=== PATIENT | female | born 1960 | race Caucasian/White ===

== ENCOUNTER 2023-01-01 23:45 | Inpatient (IN) | payer MEDICARE, OTHER ==
[~2023-01-01] VITALS: Ht 160 cm; Wt 73.0 kg
[2023-01-02] MEDS ORDERED: HYDROCODONE/APAP 5-325MG TABLET PO ONE (02:45)
[2023-01-02] MEDS ORDERED: MULT-416 PO (02:48)
[2023-01-02] MEDS ORDERED: AMLO10TA59 PO (02:48)
[2023-01-02] MEDS ORDERED: MELA5TAB PO (02:48)
[2023-01-02] MEDS ORDERED: ARIP30TA3 PO (02:48)
[2023-01-02] MEDS ORDERED: ESCI20TA44 PO (02:48)
[2023-01-02] MEDS ORDERED: LAMO100T2 PO (02:48)
[2023-01-02] MEDS ORDERED: DIVA500T4 PO (02:48)
[2023-01-02] MEDS ORDERED: ERGO400C PO (02:48)
[2023-01-02] MEDS ORDERED: DOCU250C14 PO (02:48)
[2023-01-02] MEDS ORDERED: IPRA3AMP22 IH (02:48)
[2023-01-02] MEDS ORDERED: LORA2DIS5 IM (02:48)
[2023-01-02] MEDS ORDERED: MIRT-121 PO (02:48)
[2023-01-02] MEDS ORDERED: ASCO-375 PO (02:48)
[2023-01-02] MEDS ORDERED: PANT40TA2 PO (02:48)
[2023-01-02] MEDS ORDERED: ATOR20TA PO (02:48)
[2023-01-02 03:06] LABS: HEMATOCRIT 36.7 % (31.2-41.9); MEAN CORPUSCULAR HEMOGLOBIN 30.3 uug (24.7-32.8); MEAN CORPUSCULAR VOLUME 89.6 fL (75.5-95.3); PLATELET COUNT (AUTO) 170 K/uL (179-408)
[2023-01-02 03:12] LABS: CREATININE 1.5 mg/dL (0.6-1.3); POTASSIUM 3.2 mmol/L (3.5-5.1)
--- NOTE | 2023-01-02 03:31 | NUR ---
Patient has been admitted by Rita Gibson NP and Dr Villatoro
[2023-01-02] MEDS ORDERED: HYDROCODONE/APAP 5-325MG TABLET ONE (04:16)
[2023-01-02] MEDS ORDERED: POTASSIUM BICARBONATE/CIT AC 25 MEQ TABLET.EFF PO ONE (04:30)
--- NOTE | 2023-01-02 05:01 | NUR ---
Patient will be admitted to MHU bed 140-A
[2023-01-02] MEDS ORDERED: POTASSIUM BICARBONATE/CIT AC 25 MEQ TABLET.EFF ONE (05:21)
--- NOTE | 2023-01-02 05:33 | NUR ---
Called Yahaira Smith to notify of patients admission to MHU. Unable to reach her, left a voicemail.
--- NOTE | 2023-01-02 06:00 | NUR ---
Report given to Julieta COULTER at [facility]
--- NOTE | 2023-01-02 06:33 | NUR ---
Patient taken to MHU via wheelchair with personal belongings. Patient in stable condition, no signs of distress. May RN aware of patients arrival.
[2023-01-02] MEDS ORDERED: BLOOD SUGAR DIAGNOSTIC 1 EACH STRIP VI ONE (06:45)
[2023-01-02] MEDS ORDERED: MAGNESIUM HYDROXIDE 30 ML LIQUID UDC PO PRN (06:45)
[2023-01-02] MEDS ORDERED: LORAZEPAM 0.5 MG TABLET PO PRN (06:45)
[2023-01-02] MEDS ORDERED: MAG HYDROX/AL HYDROX/SIMETH 30 ML LIQUID UDC PO PRN (06:45)
[2023-01-02 06:58] VITALS: BP 161/92
--- NOTE | 2023-01-02 07:19 | NUR ---
GPS ADMISSION NOTES: Admitted a 62 Y/0 female from [facility], she was BIB ER nurse to the unit via wheelchair. Patient is on 515o hold d/t DTS and GD, she is breaking the window at her facility, non-compliant with medications and not following directions. Upon face to face evaluation, she is A&0X2, she is ambulatory and hyperverbal. Her thought are disorganized, also having suspicious statements about the vaccines. Advisement are given and patients right were given to patient.
[2023-01-02 07:30] VITALS: BP 130/59
--- NOTE | 2023-01-02 09:22 | NUR ---
PALOMO Conservator Contact: PALOMO spoke with pt's conservator, Yahaira ([phone]) who stated she renewed the conservator paperwork o December 30 and it was approved by the county judge. [facility] ([phone]). Yahaira stated we cannot obtain the paperwork for another week until the Right Of Way Manager signs it and sends it. Psychiatrist, Dr. Villatoro is aware.
[2023-01-02] MEDS: MULTIVIT, IRON, MIN NO. 8, FA TABLET PO SCH (09:48)
[2023-01-02] MEDS: ASCORBIC ACID 500 MG TABLET PO SCH (09:48)
[2023-01-02] MEDS: DOCUSATE SODIUM 250 MG CAPSULE PO SCH (09:49)
[2023-01-02] MEDS: CHOLECALCIFEROL 1,000 UNIT TABLET PO SCH (09:49)
[2023-01-02] MEDS: AMLODIPINE 10 MG TABLET PO SCH (09:50)
[2023-01-02] MEDS: PANTOPRAZOLE SODIUM 40 MG TABLET.DR PO SCH (09:53)
[2023-01-02] MEDS: POTASSIUM CHLORIDE 20 MEQ TAB.PRT.SR PO ONE ×2 (12:00→13:59)
--- NOTE | 2023-01-02 12:24 | NUR ---
PALOMO Initial Discharge Note: Pt currently resides at [facility] located at [address] [place] [address]. PALOMO will contact pt's conservator, Yahaira ([phone]) to discuss pt's discharge plan. It is unclear at this time what type of conservatorship the pt has. PALOMO will contact the admissions team at [facility] to dicuss if pt is accepted to return to their facility upon discharge. PALOMO will continue to work with pt, conservator and MD to ensure a safe and proper discharge.
--- NOTE | 2023-01-02 14:14 | NUR ---
Patient refused POTASSIUM CHLORIDE 20 MEQ TAB. PRT .SR. Pt chew pill and stated "this does not taste like potassium, I do not want it".Patient spit out the pill.
[2023-01-02] MEDS ORDERED: BENZTROPINE MESYLATE 0.5 MG TABLET PO SCH (14:30)
[2023-01-02] MEDS: risperiDONE 1 MG TABLET PO SCH ×3 (15:00→20:00)
[2023-01-02] MEDS: DIVALPROEX 250 MG TABLET.DR PO SCH ×3 (15:00→20:00)
--- NOTE | 2023-01-02 15:25 | NUR ---
Received pt in hallway demanding to see the Dr. Pt is ambulatory A/O X 3.Pt has unkept appearance. Pt refuses nursing care and refuses ADL's. Pt is not med compliant.Pt demands medications and when offer refuses to taker them. Pt is intrusive, hyperverbal, accusatory Pt stated "why are you talking about me" "what did you called me?".Pt goes into other patients rooms.Pt is delusional, grandiose, pt stated "I am better than a nurse because of Estiven Broderick.Pt stated "this is a taoist not a hospital. Patient keeps trying to elope. Pt has generalized rash , Phlebotomist Associate was informed ad prescribed PERMETHRIN CREAM 5% W/W and pt refuse. Pt refused refuse to let nurse take picture of the rash. Continue to monitor for safety, continue with treatment plan
[2023-01-02 16:00] VITALS: BP 154/94
[2023-01-02] MEDS ORDERED: PERMETHRIN 5% CREAM 60 GM TUBE TP ONE (16:30)
[2023-01-02] MEDS ORDERED: OLANZAPINE 10 MG VIAL IM STA (19:28)
[2023-01-02] MEDS: LORAZEPAM 1 MG TABLET PO PRN (20:00)
[2023-01-02] MEDS: ATORVASTATIN 20 MG TABLET PO SCH (20:12)
[2023-01-02] MEDS: MELATONIN 3 MG TABLET PO SCH (20:12)
[2023-01-02] MEDS ORDERED: LORAZEPAM 2 MG/1 ML VIAL IM STA (21:21)
[2023-01-02] MEDS ORDERED: diphenhydrAMINE 50 MG/1 ML VIAL IM STA (21:21)
--- NOTE | 2023-01-02 22:57 | NUR ---
Received patient at start of the shift, in nursing area, tearing papers off the marsh. Hallucinating, delusional, load and not responding to any redirection. Multiple attempts to calm the patient and encourage compliance failed. The patient continuously tried to fight with staff and peers. No regard for safety of anyone. She refused to take any medications and refused V.S. Dr. Villatoro was notified and order was received for IM injection Zyprexa. Security was present, and injection was given. The patient tolerated the shot well. Unfortunately, the medication was not effective, and the patients behavior continued. At one point, the patient agreed to take medications by mouth. When this tag writer gave them to her, She spit the pill and the water out on the floor. Many tries to calm patient down were unsuccessful. A hour after the first injection, a second injection was ordered. Again, the patient tolerated it well. Directly afterwards, this patient was at the door of the unit trying to go AWOL. Ongoing safety stratiges in place. Eventually, the patient agreed to sit in a chair, near the nurses station for close observation. VS were monitored and stable. The patient ate and drank but still acting out to some degree. Continuous monitoring of this patients labile behavior since start of the shift. At this time, the patient is calming down and might be willing to get some rest. Close observation ongoing.
[2023-01-02] MEDS: TEMAZEPAM 7.5 MG CAPSULE PO PRN (23:04)
[2023-01-03] MEDS: PANTOPRAZOLE SODIUM 40 MG TABLET.DR PO SCH (06:32)
[2023-01-03 07:30] VITALS: BP 122/68
[2023-01-03] MEDS: AMLODIPINE 10 MG TABLET PO SCH (08:31)
[2023-01-03] MEDS: CHOLECALCIFEROL 1,000 UNIT TABLET PO SCH (08:31)
[2023-01-03] MEDS: DOCUSATE SODIUM 250 MG CAPSULE PO SCH (08:31)
[2023-01-03] MEDS: DIVALPROEX 250 MG TABLET.DR PO SCH ×3 (08:31→17:00)
[2023-01-03] MEDS: MULTIVIT, IRON, MIN NO. 8, FA TABLET PO SCH (08:31)
[2023-01-03] MEDS: HYDROCORTISONE 1% OINT 28.35 GM TUBE TOP SCH ×2 (08:32→17:00)
[2023-01-03] MEDS: risperiDONE 1 MG TABLET PO SCH ×3 (08:32→17:00)
[2023-01-03] MEDS: ASCORBIC ACID 500 MG TABLET PO SCH (08:32)
--- NOTE | 2023-01-03 09:02 | NUR ---
PALOMO Conservator Contact: PALOMO contacted pt's conservator, Yahaira ([phone]) and left a voicemail to discuss pt's conservator paperwork. Per Seamer Panty Hose, Dr. Marinelli and Director of Behavioral Health, Dr. Christina Perez, Yahaira is required to provide a letter stating that she will provide conservatorship paperwork in a week when the Pin Or Clip Fastener provides it.
--- NOTE | 2023-01-03 09:12 | NUR ---
PALOMO Conservator Contact: PALOMO contacted pt's conservator, Yahaira ([phone]) and left a voicemail for a call back regarding conservatorship paperwork.
--- NOTE | 2023-01-03 10:36 | NUR ---
Firearms Report: Flat Breakdown Processor completed and submitted a [employer] firearms report for 5150 grave disability certifications. A copy of report has been placed in patient chart.
[2023-01-03 11:53] LABS: MEAN CORPUSCULAR HEMOGLOBIN 29.9 uug (24.7-32.8); MEAN CORPUSCULAR VOLUME 89.9 fL (75.5-95.3); PLATELET COUNT (AUTO) 179 K/uL (179-408)
[2023-01-03 12:14] LABS: BILIRUBIN,TOTAL 0.6 mg/dL (0.2-1.0); CREATININE 1.4 mg/dL (0.6-1.3); MAGNESIUM 2.3 mg/dL (1.8-2.4); PHOSPHOROUS 3.7 mg/dL (2.5-4.9); POTASSIUM 4.2 mmol/L (3.5-5.1); TOTAL PROTEIN, SERUM 7.4 g/dL (6.4-8.2)
--- NOTE | 2023-01-03 12:33 | NUR ---
Clinical SW Note: SW contacted [facility] [phone] and spoke with the desk office of the day, Lowell regarding pt's conservatorship paperwork. Lowell stated pt's new conservatorship paperwork is effective until November 06, 2023. . Lowell stated the hospital can only obtain the paperwork from the conservator, Yahaira ([phone]) who stated to this SW that she will have the papers within a week. SW informed pt's psychiatrist, Dr. Marinelli and Director of behavioral health, Dr. Perez.
[2023-01-03] MEDS ORDERED: OLANZAPINE 10 MG VIAL IM ONE (14:15)
[2023-01-03] MEDS ORDERED: LORAZEPAM 2 MG/1 ML VIAL IM ONE (14:15)
--- NOTE | 2023-01-03 14:16 | NUR ---
Clinical SW Note: SW contacted [facility] [phone] and was not able to get connected or leave a voicemail.
--- NOTE | 2023-01-03 14:45 | NUR ---
Patient became disoriented, delusional, incoherent, agitated, aggressive, hyperverbal, threatening physical harm to others and environment. Psychiatrist was called and prescribed Zyprexa 10 mg IM, and Ativan 1 mg IM. Security was called and 4 staff were necessary to administer medication, but no force needed. Reassurance given. Fall and safety precautions implemented.
--- NOTE | 2023-01-03 15:54 | NUR ---
Patient is hyperverbal, manic, agitated, restless, incoherent, verbally abusive, accusatory, uncooperative with nursing care, and refusing medications. Patient defecated in her hand, squeezed between her fingers, and try to give to staff stating "I need a poop test, tell the doctor" Patient is A/O X 2 to person, place. Requires minimal assistance with ADL, ambulates independently, continent. Reality orientation provided. Fall and safety precautions implemented.
[2023-01-03 16:00] VITALS: BP 130/74
[2023-01-03 20:08] VITALS: BP 108/57
[2023-01-03] MEDS: ATORVASTATIN 20 MG TABLET PO SCH (20:41)
[2023-01-03] MEDS: MELATONIN 3 MG TABLET PO SCH (20:42)
[2023-01-03] MEDS: TEMAZEPAM 7.5 MG CAPSULE PO PRN (22:24)
[2023-01-04] MEDS: LORAZEPAM 1 MG TABLET PO PRN (01:41)
--- NOTE | 2023-01-04 04:47 | NUR ---
GPS NOTES: Patient is manic, hyperverbal and very needy. She is is attention seeker, intrusive and labile. She needs constant re-direction, she is argumentative when being educated on the unit rules. She is disruptive in the unit, potential for violence d/t to her delusions. Her thought process is disorganized, she is paranoid and accusatory of staff. She is non-compliant with her routine medications. Temazepam given as per her request. Semi-effective, patient only slept 1.30H during shift.All needs are attended to. Safety precautions implemented at all times.
[2023-01-04] MEDS: PANTOPRAZOLE SODIUM 40 MG TABLET.DR PO SCH (06:12)
[2023-01-04 07:56] VITALS: BP 140/100
[2023-01-04] MEDS: DOCUSATE SODIUM 250 MG CAPSULE PO SCH (08:22)
[2023-01-04] MEDS: AMLODIPINE 10 MG TABLET PO SCH (08:22)
[2023-01-04] MEDS: DIVALPROEX 250 MG TABLET.DR PO SCH ×3 (08:22→17:23)
[2023-01-04] MEDS: risperiDONE 1 MG TABLET PO SCH ×3 (08:23→17:22)
[2023-01-04] MEDS: MULTIVIT, IRON, MIN NO. 8, FA TABLET PO SCH (08:23)
[2023-01-04] MEDS: CHOLECALCIFEROL 1,000 UNIT TABLET PO SCH (08:23)
[2023-01-04] MEDS: HYDROCORTISONE 1% OINT 28.35 GM TUBE TOP SCH ×2 (08:23→17:23)
[2023-01-04] MEDS: ASCORBIC ACID 500 MG TABLET PO SCH (08:24)
--- NOTE | 2023-01-04 14:32 | NUR ---
PT NOTED COMING TO THE NURSES STATION AN EXORBITANT AMOUNT OF TIMES, MAKING VARYING ARBITRARY REQUESTS AND NEEDS. PT IS EXCESSIVELY NEEDY AND INTRUSIVE, REQUIRES FREQUENT AND EXCESSIVE REDIRECTION. REMAINS MANIC, ATTENTION SEEKING, ARGUMENTATIVE, LABILE, DEMANDING, AND QUITE MANIPULATIVE. CONTINUE TO PROVIDE LIMIT SETTING AND ENCOURAGE COMPLIANCE WITH UNIT RULES AND WITH STAFF AND UNIT BOUNDARIES.
[2023-01-04 16:19] VITALS: BP 152/84
[2023-01-04 20:00] VITALS: BP 112/84
[2023-01-04] MEDS: ATORVASTATIN 20 MG TABLET PO SCH (20:38)
[2023-01-04] MEDS: MELATONIN 3 MG TABLET PO SCH (20:38)
[2023-01-05] MEDS: LORAZEPAM 1 MG TABLET PO PRN ×4 (01:20→20:24)
[2023-01-05] MEDS: PANTOPRAZOLE SODIUM 40 MG TABLET.DR PO SCH (06:08)
--- NOTE | 2023-01-05 06:32 | NUR ---
GPS NOTES: No noted behavioral improvement noted, continues to have yelling episodes, verbally abusive and no regard for peoples feelings. Ambien given. Effective. All safety strategies in placed. Addendum: 01/05/23 at 0639 by PEDRO LYNNE RN CHARTED TO WRONG PATIENT
--- NOTE | 2023-01-05 06:40 | NUR ---
GPS NOTES: She remains intrusive, very needy and demanding. Manipulating staff and making requests every 15 minutes, tends to be hostile when setting limits implemented. She is grandiose stating she is "special", needs presenting reality. Patient has no concept of boundaries, she is manic, pacing around the unit, often in the nursing station demanding for attention by making alot of requests. She is med compliant. Slept 4.15H. Safety strategies in placed. Frequent monitoring for any behavioral escalation.
[2023-01-05 08:13] VITALS: BP 120/82
[2023-01-05] MEDS: risperiDONE 1 MG TABLET PO SCH ×3 (08:31→16:46)
[2023-01-05] MEDS: CHOLECALCIFEROL 1,000 UNIT TABLET PO SCH (08:31)
[2023-01-05] MEDS: AMLODIPINE 10 MG TABLET PO SCH (08:31)
[2023-01-05] MEDS: MULTIVIT, IRON, MIN NO. 8, FA TABLET PO SCH (08:31)
[2023-01-05] MEDS: DIVALPROEX 250 MG TABLET.DR PO SCH ×3 (08:32→16:46)
[2023-01-05] MEDS: HYDROCORTISONE 1% OINT 28.35 GM TUBE TOP SCH ×2 (08:32→16:47)
[2023-01-05] MEDS: ASCORBIC ACID 500 MG TABLET PO SCH (08:32)
[2023-01-05] MEDS: DOCUSATE SODIUM 250 MG CAPSULE PO SCH (08:32)
[2023-01-05 16:10] VITALS: BP 139/74
--- NOTE | 2023-01-05 18:03 | NUR ---
Received Patient is hyperverbal, manic, agitated, restless, incoherent, uncooperative with nursing care. constantly coming to nurse station asking for help very needy.augmentative when medication given. Patient is A/O X 2 to person, place. Requires minimal assistance with ADL, ambulates independently, continent. Reality orientation provided. Fall and safety precautions implemented.
[2023-01-05 20:06] VITALS: BP 121/55
[2023-01-05] MEDS: ATORVASTATIN 20 MG TABLET PO SCH ×2 (20:19→20:25)
[2023-01-05] MEDS: ACETAMINOPHEN 325 MG TABLET PO PRN ×2 (20:20→20:24)
[2023-01-05] MEDS: MELATONIN 3 MG TABLET PO SCH ×2 (20:20→20:25)
--- NOTE | 2023-01-06 00:17 | NUR ---
~~~ NEEDY and ATTENTION SEEKING ~~~
[2023-01-06] MEDS: PANTOPRAZOLE SODIUM 40 MG TABLET.DR PO SCH (06:20)
[2023-01-06 07:50] VITALS: BP 166/76
[2023-01-06] MEDS: LORAZEPAM 1 MG TABLET PO PRN ×2 (08:39→20:08)
[2023-01-06] MEDS: MULTIVIT, IRON, MIN NO. 8, FA TABLET PO SCH (08:39)
[2023-01-06] MEDS: DOCUSATE SODIUM 250 MG CAPSULE PO SCH (08:39)
[2023-01-06] MEDS: CHOLECALCIFEROL 1,000 UNIT TABLET PO SCH (08:40)
[2023-01-06] MEDS: DIVALPROEX 250 MG TABLET.DR PO SCH ×3 (08:40→16:46)
[2023-01-06] MEDS: risperiDONE 1 MG TABLET PO SCH ×3 (08:40→16:46)
[2023-01-06] MEDS: AMLODIPINE 10 MG TABLET PO SCH (08:40)
[2023-01-06] MEDS: ASCORBIC ACID 500 MG TABLET PO SCH (08:41)
[2023-01-06] MEDS: HYDROCORTISONE 1% OINT 28.35 GM TUBE TOP SCH ×2 (08:42→16:47)
[2023-01-06 09:06] LABS: A/G RATIO 1.2 (0.7-1.7); ALBUMIN 3.7 g/dL (2.9-4.4); ALPHA-1-GLOBULIN 0.3 g/dL (0.0-0.4); ALPHA-2-GLOBULIN 0.7 g/dL (0.4-1.0); BETA GLOBULIN 1.2 g/dL (0.7-1.3); GLOBULIN, TOTAL 3.2 g/dL (2.2-3.9); M-SPIKE Not Observed g/dL (Not Observed)
--- NOTE | 2023-01-06 09:27 | NUR ---
PALOMO LPS Conservator Contact: PALOMO contacted pt's conservator, Yahaira ([phone]) and discussed pt's current status and discharge plan. PALOMO asked if Yahaira can send a letter stating that [facility] will receive her LPS paperwork within the week and that [facility] has the right to treat the pt. PALOMO provided work email as Cayetano stated she does not have a fax machine. Cayetano was agreeable and stated she will send it today. Pt's discharge plan remains the same to return to [facility] ([phone]) [id number] [place] [address] upon discharge.
--- NOTE | 2023-01-06 16:05 | NUR ---
Clinical SW Note: Pt continues with intrusive behavior. Pt requires constant redirection and appears forgetful. Pt remains accusatory and argumentative with staff.
[2023-01-06 16:38] VITALS: BP 127/75
[2023-01-06 19:51] VITALS: BP 121/85
[2023-01-06] MEDS: ACETAMINOPHEN 325 MG TABLET PO PRN (20:08)
[2023-01-06] MEDS: ATORVASTATIN 20 MG TABLET PO SCH (20:09)
[2023-01-06] MEDS: MELATONIN 3 MG TABLET PO SCH (20:09)
[2023-01-07] MEDS: TEMAZEPAM 7.5 MG CAPSULE PO PRN ×2 (00:35→22:06)
[2023-01-07] MEDS: PANTOPRAZOLE SODIUM 40 MG TABLET.DR PO SCH (06:22)
--- NOTE | 2023-01-07 08:00 | NUR ---
Pt received from outgoing nurse. PT AAOX3. Very anxious. Pt ambulate frequently ambulating hallways. No signs of shortness of breath noted. Pt denies any pain at this time. All meds given. Will continue to monitor
[2023-01-07 08:05] VITALS: BP 127/69
[2023-01-07] MEDS: AMLODIPINE 10 MG TABLET PO SCH (09:06)
[2023-01-07] MEDS: ASCORBIC ACID 500 MG TABLET PO SCH (09:06)
[2023-01-07] MEDS: DIVALPROEX 250 MG TABLET.DR PO SCH ×3 (09:06→17:00)
[2023-01-07] MEDS: DOCUSATE SODIUM 250 MG CAPSULE PO SCH (09:06)
[2023-01-07] MEDS: MULTIVIT, IRON, MIN NO. 8, FA TABLET PO SCH (09:06)
[2023-01-07] MEDS: risperiDONE 1 MG TABLET PO SCH ×2 (09:06→13:35)
[2023-01-07] MEDS: CHOLECALCIFEROL 1,000 UNIT TABLET PO SCH (09:06)
[2023-01-07] MEDS: HYDROCORTISONE 1% OINT 28.35 GM TUBE TOP SCH ×2 (09:13→17:06)
--- NOTE | 2023-01-07 13:45 | NUR ---
PALOMO LPS Conservator Contact: PALOMO contacted pt's conservator, Yahaira ([phone]) and discussed an update on the [facility] conservatorship paperwork or minute order. Yahaira said minute orders are not available via email and she is not able to drive to the court house to receive one. Yahaira stated she will send the paperwork once she receives it or drive to get the minute order if not received soon. PALOMO emphasized the importance of receiving the paperwork. PALOMO will continue to stay in contact.
[2023-01-07] MEDS: HYDROXYZINE PAMOATE 25 MG CAPSULE PO PRN ×2 (13:52→23:37)
[2023-01-07 16:08] VITALS: BP 111/87
--- NOTE | 2023-01-07 16:36 | NUR ---
14 day PC hearing done, held for [facility] Dis[facility].
[2023-01-07 19:58] VITALS: BP 137/75
[2023-01-07] MEDS: ATORVASTATIN 20 MG TABLET PO SCH (20:19)
[2023-01-07] MEDS: MELATONIN 3 MG TABLET PO SCH (20:19)
[2023-01-07] MEDS: risperiDONE 2 MG TABLET PO SCH (20:19)
[2023-01-07] MEDS: ACETAMINOPHEN 325 MG TABLET PO PRN (20:19)
[2023-01-07] MEDS: LORAZEPAM 1 MG TABLET PO PRN (20:19)
--- NOTE | 2023-01-08 03:41 | NUR ---
Not as INTRUSIVE as the last couple shifts, but still intrusive. Pt wanders the unit aimlessly, and makes unnecessary requests knowingly. Still attention seeking with poor judgement. Setting strict boundaries q shift is necessary. Re-education is ongoing. Contracted for safety.
[2023-01-08] MEDS: PANTOPRAZOLE SODIUM 40 MG TABLET.DR PO SCH (06:45)
[2023-01-08] MEDS: LORAZEPAM 1 MG TABLET PO PRN ×2 (06:45→21:34)
[2023-01-08 07:49] VITALS: BP 137/89
[2023-01-08] MEDS: DIVALPROEX 250 MG TABLET.DR PO SCH (08:27)
[2023-01-08] MEDS: risperiDONE 1 MG TABLET PO SCH ×2 (08:27→12:12)
[2023-01-08] MEDS: DOCUSATE SODIUM 250 MG CAPSULE PO SCH (08:27)
[2023-01-08] MEDS: CHOLECALCIFEROL 1,000 UNIT TABLET PO SCH (08:28)
[2023-01-08] MEDS: MULTIVIT, IRON, MIN NO. 8, FA TABLET PO SCH (08:28)
[2023-01-08] MEDS: ASCORBIC ACID 500 MG TABLET PO SCH (08:28)
[2023-01-08] MEDS: AMLODIPINE 10 MG TABLET PO SCH (08:28)
[2023-01-08] MEDS: HYDROCORTISONE 1% OINT 28.35 GM TUBE TOP SCH ×2 (08:30→16:50)
[2023-01-08] MEDS ORDERED: diphenhydrAMINE 25 MG/10 ML UDC NG SCH (09:45)
[2023-01-08] MEDS: diphenhydrAMINE 25 MG CAP PO SCH ×2 (10:02→16:49)
--- NOTE | 2023-01-08 10:38 | NUR ---
PALOMO [facility] Conservatorship Update: PALOMO contacted [facility] ([phone]) again and spoke with Theron in the court house. This PALOMO requested Theron for the minute order to be sent via email or fax to [facility] per Director of Behavioral Health, Dr. Perez. PALOMO stated [facility] must have the document on file during pt's admission on the unit. Theron stated they normally do not send these as it needs to come from the [facility] conservator. However, Theron stated he understands the urgency and faxed the minute order per request to this SW. PALOMO placed a copy of the minute order in the pt's chart. Theron informed this SW that the collarette separator has not yet signed the paperwork to be sent via mail to the conservator.
[2023-01-08 15:10] VITALS: BP 144/95
--- NOTE | 2023-01-08 16:04 | NUR ---
"Receive pt in hallway demanding to use the phone.|Pt is A/ O X 3 ,hyperverbal, intrusive, Manic. Pt comes to nursing station constantly asking for the phone, snacks, water and belongings. Pt is compliant with medications and Nursing care . Pt has poor impulse control Continue to monitor for safety, Continue with treatment plan."
[2023-01-08] MEDS: OXCARBAZEPINE 300 MG TABLET PO SCH (16:50)
[2023-01-08] MEDS: ATORVASTATIN 20 MG TABLET PO SCH (20:14)
[2023-01-08] MEDS: risperiDONE 2 MG TABLET PO SCH (20:14)
[2023-01-08] MEDS: MELATONIN 3 MG TABLET PO SCH (20:14)
[2023-01-08 20:50] VITALS: BP 123/83
--- NOTE | 2023-01-09 04:52 | NUR ---
GPS NOTES: Patient remains delusional, making statements that she is allergic to Risperdal and Ativan, as they make her shake and itchy. She is anxious and wandering around the unit. She remains needy. Med-compliant with this feature writer. Needs to set limits and boundaries. She is labile and manic. Sleeping on and off during shift. Sleep walking observed. Trying to open every exit door. Guided her safely back to room. All safety strategies left in placed.
[2023-01-09] MEDS: PANTOPRAZOLE SODIUM 40 MG TABLET.DR PO SCH (06:20)
[2023-01-09 07:30] VITALS: BP 111/77
[2023-01-09] MEDS: risperiDONE 1 MG TABLET PO SCH (08:00)
[2023-01-09] MEDS: diphenhydrAMINE 25 MG CAP PO SCH ×2 (08:04→17:21)
[2023-01-09] MEDS: DOCUSATE SODIUM 250 MG CAPSULE PO SCH (08:04)
[2023-01-09] MEDS: ASCORBIC ACID 500 MG TABLET PO SCH (08:05)
[2023-01-09] MEDS: OXCARBAZEPINE 300 MG TABLET PO SCH ×3 (08:05→17:21)
[2023-01-09] MEDS: CHOLECALCIFEROL 1,000 UNIT TABLET PO SCH (08:05)
[2023-01-09] MEDS: MULTIVIT, IRON, MIN NO. 8, FA TABLET PO SCH (08:07)
[2023-01-09] MEDS: HYDROCORTISONE 1% OINT 28.35 GM TUBE TOP SCH ×2 (08:08→17:21)
[2023-01-09] MEDS: AMLODIPINE 10 MG TABLET PO SCH (08:09)
--- NOTE | 2023-01-09 10:50 | NUR ---
PALOMO LPS Conservator Contact: PALOMO contacted pt's conservator, Yahaira ([phone]) and informed her that [facility] provided the minute order to [facility]. Cayetano is aware that we are now only waiting for the LPS paperwork when she receives them in the mail.
[2023-01-09] MEDS: ARIPIPRAZOLE 5 MG TABLET PO SCH (12:14)
--- NOTE | 2023-01-09 15:30 | NUR ---
Receive pt on hallway,restless, Hyperverbal,demanding ,snacks, to see her belongings that were left at her other facility where she came from. Pt is A/o X2 self care ambulatory.Pt is intrusive and keeps interrupting staff when they are talking to other patients or doctor. Pt is easily redirectable. Pt is Compliant with nursing and medications.Continue to monitor for safety, continue with treatment plan.
[2023-01-09 16:00] VITALS: BP 147/98
[2023-01-09 20:37] VITALS: BP 145/91
[2023-01-09] MEDS: ATORVASTATIN 20 MG TABLET PO SCH (20:56)
[2023-01-09] MEDS: MELATONIN 3 MG TABLET PO SCH (20:56)
[2023-01-09] MEDS ORDERED: ARIPIPRAZOLE 10 MG TABLET PO SCH (21:00)
--- NOTE | 2023-01-09 21:30 | NUR ---
RECEIVED PATIENT IN THE HALLWAY. SHE IS NOTED A/O X 2 TO 3 ABLE TO AMBULATE WITH STEADY GAIT. SHE IS SOMEWHAT BETTER. SHE CONTINUE INTRUSIVE, HYPERVERBAL, ASKING FOR MULTIPLE THINGS. HOWEVER, SHE IS ABLE TO BE REDIRECTED. SHE IS COMPLIANT WITH ABILITY QHS. SHE IS REASSURED FOR HER SAFETY. SAFETY AND FALL PRECAUTIONS ARE IN PLACE. ALL HER NEEDS ARE MET. HER V/S ARE STABLE. SHE WAS GIVEN PO FLUIDS AND SNACKS. WILL CONTINUE TO MONITOR,
[2023-01-09] MEDS: LORAZEPAM 1 MG TABLET PO PRN (22:18)
[2023-01-10] MEDS: HYDROXYZINE PAMOATE 25 MG CAPSULE PO PRN ×2 (06:26→21:24)
[2023-01-10] MEDS: PANTOPRAZOLE SODIUM 40 MG TABLET.DR PO SCH (06:26)
[2023-01-10 07:30] VITALS: BP 149/80
[2023-01-10] MEDS: diphenhydrAMINE 25 MG CAP PO SCH ×2 (08:30→16:11)
[2023-01-10] MEDS: OXCARBAZEPINE 300 MG TABLET PO SCH ×3 (08:30→12:38)
[2023-01-10] MEDS: CHOLECALCIFEROL 1,000 UNIT TABLET PO SCH (08:30)
[2023-01-10] MEDS: DOCUSATE SODIUM 250 MG CAPSULE PO SCH (08:30)
[2023-01-10] MEDS: MULTIVIT, IRON, MIN NO. 8, FA TABLET PO SCH (08:30)
[2023-01-10] MEDS: ARIPIPRAZOLE 5 MG TABLET PO SCH ×3 (08:30→12:38)
[2023-01-10] MEDS: ASCORBIC ACID 500 MG TABLET PO SCH (08:31)
[2023-01-10] MEDS: AMLODIPINE 10 MG TABLET PO SCH (08:32)
[2023-01-10] MEDS: HYDROCORTISONE 1% OINT 28.35 GM TUBE TOP SCH ×2 (08:33→16:11)
[2023-01-10] MEDS: ACETAMINOPHEN 325 MG TABLET PO PRN (09:36)
--- NOTE | 2023-01-10 15:29 | NUR ---
Received patient awake in the hallway. Patient is demanding, needy, selective and suspicious with medications, argumentative, hyperverbal, accusatory at times. Patient is A/O X 2 to person. Patient requires redirection and prompts all the time. Reality orientation provided. Fall and safety precautions implemented.
[2023-01-10] MEDS: LORAZEPAM 1 MG TABLET PO PRN (15:53)
[2023-01-10 16:00] VITALS: BP 154/102
[2023-01-10 20:32] VITALS: BP 140/77
[2023-01-10] MEDS: MELATONIN 3 MG TABLET PO SCH (20:33)
[2023-01-10] MEDS: ARIPIPRAZOLE 10 MG TABLET PO SCH (20:34)
[2023-01-10] MEDS: ATORVASTATIN 20 MG TABLET PO SCH (20:34)
--- NOTE | 2023-01-10 22:00 | NUR ---
RECEIVED PATIENT IN THE HALLWAY, SHE IS NOTED A/O X 2 TO 3. SHE IS HYPERVERBAL, CHILDISH LIKE BEHAVIOR AND DEMANDING AT TIMES. SHE IS NEEDY. "I NEED PAPERS AND PENCIL. I WANT FOOD, TEA, JUICE, COOKIES. WHAT IS THE WEATHER LIKE? CAN I HAVE MORE DECORATIONS, I NEED THE PHONE AGAIN. I NEED MORE BLANKETS.I NEED ANOTHER PANTS, I WANT TO SHOWER, ETC ETC ETC". PATIENT REQUIRED CONSTANT REDIRECTIONS REASSURANCE AND REALITY ORIENTATIONS. SHE WAS GIVEN PO FLUIDS AND SNACKS. HER V/S ARE STABLE. SHE IS REASSURED FOR HER SAFETY. SAFETY AND FALL PRECAUTIONS ARE IN PLACE. ALL HER NEEDS ARE MET. WILL CONTINUE TO MONITOR.
[2023-01-10] MEDS: TEMAZEPAM 7.5 MG CAPSULE PO PRN (22:04)
[2023-01-11] MEDS: LORAZEPAM 1 MG TABLET PO PRN (02:49)
[2023-01-11] MEDS: PANTOPRAZOLE SODIUM 40 MG TABLET.DR PO SCH (06:43)
[2023-01-11] MEDS: ARIPIPRAZOLE 5 MG TABLET PO SCH ×2 (08:00→12:54)
[2023-01-11] MEDS: DOCUSATE SODIUM 250 MG CAPSULE PO SCH (08:01)
[2023-01-11] MEDS: OXCARBAZEPINE 300 MG TABLET PO SCH ×2 (08:01→12:54)
[2023-01-11] MEDS: diphenhydrAMINE 25 MG CAP PO SCH ×2 (08:01→17:17)
[2023-01-11 08:02] VITALS: BP 131/73
[2023-01-11] MEDS: ASCORBIC ACID 500 MG TABLET PO SCH (08:02)
[2023-01-11] MEDS: MULTIVIT, IRON, MIN NO. 8, FA TABLET PO SCH (08:02)
[2023-01-11] MEDS: AMLODIPINE 10 MG TABLET PO SCH (08:02)
[2023-01-11] MEDS: CHOLECALCIFEROL 1,000 UNIT TABLET PO SCH (08:03)
[2023-01-11] MEDS: HYDROCORTISONE 1% OINT 28.35 GM TUBE TOP SCH ×2 (08:03→17:17)
[2023-01-11 16:07] VITALS: BP 146/91
--- NOTE | 2023-01-11 16:38 | NUR ---
Received pt the dinning room watching television.Pt is A/O X3 .Pt is intrusive, Hyperverbal, Manic, Anxious , Argumentative, restless, easily irritable and demanding.Pt is delusional stating "My boyfriend is a wizard with a magic stick" " Im a bird".Pt keeps coming to the nursing station making demands, stating "call my Now to change my Medications and tel her in do not take medications in the after noon only morning and night".Pt keeps interrupting staff when on Phone or talking to other patients.Pt keeps demanding snacks every 15 minutes.Pt is compliant with medications but selective at times and needs a lot of prompting. Pt needs to be redirected most of the time.Continue to monitor for safety, Continue with treatment plan.
[2023-01-11] MEDS: MELATONIN 3 MG TABLET PO SCH (20:16)
[2023-01-11] MEDS: ATORVASTATIN 20 MG TABLET PO SCH (20:16)
[2023-01-11] MEDS: ARIPIPRAZOLE 10 MG TABLET PO SCH (20:16)
[2023-01-11] MEDS: ACETAMINOPHEN 325 MG TABLET PO PRN (22:07)
[2023-01-11] MEDS: TEMAZEPAM 7.5 MG CAPSULE PO PRN (22:07)
--- NOTE | 2023-01-12 04:47 | NUR ---
GPS NOTES: Remains needy by constantly asking multiple requests, setting limits in placed for the behavior, easily irate when re-directed. Denies SI, AH/VH. Hyperverbal, manic and attention seeker. Needs prompting to take her medications. Monitored closely for any behavioral escalation. Safety strategies in placed.
[2023-01-12] MEDS: PANTOPRAZOLE SODIUM 40 MG TABLET.DR PO SCH (06:11)
[2023-01-12 07:30] VITALS: BP 166/85
[2023-01-12 08:04] LABS: MEAN CORPUSCULAR HEMOGLOBIN 29.5 uug (24.7-32.8); MEAN CORPUSCULAR VOLUME 89.5 fL (75.5-95.3); PLATELET COUNT (AUTO) 128 K/uL (179-408)
[2023-01-12 08:08] LABS: CREATININE 1.3 mg/dL (0.6-1.3); MAGNESIUM 2.2 mg/dL (1.8-2.4); PHOSPHOROUS 4.4 mg/dL (2.5-4.9); POTASSIUM 4.5 mmol/L (3.5-5.1)
[2023-01-12] MEDS: MULTIVIT, IRON, MIN NO. 8, FA TABLET PO SCH (08:18)
[2023-01-12] MEDS: CHOLECALCIFEROL 1,000 UNIT TABLET PO SCH (08:18)
[2023-01-12] MEDS: ARIPIPRAZOLE 5 MG TABLET PO SCH ×2 (08:18→12:14)
[2023-01-12] MEDS: DOCUSATE SODIUM 250 MG CAPSULE PO SCH (08:18)
[2023-01-12] MEDS: diphenhydrAMINE 25 MG CAP PO SCH ×2 (08:18→16:14)
[2023-01-12] MEDS: OXCARBAZEPINE 300 MG TABLET PO SCH ×2 (08:18→12:13)
[2023-01-12] MEDS: AMLODIPINE 10 MG TABLET PO SCH (08:19)
[2023-01-12] MEDS: ASCORBIC ACID 500 MG TABLET PO SCH (08:20)
[2023-01-12] MEDS: HYDROCORTISONE 1% OINT 28.35 GM TUBE TOP SCH ×2 (08:21→16:15)
[2023-01-12] MEDS: GLUCERNA SHAKE 237 ML CAN PO SCH (08:24)
[2023-01-12 15:21] VITALS: BP 146/89
--- NOTE | 2023-01-12 15:33 | NUR ---
Received patient is hyperverbal, manic, agitated, restless, uncooperative with nursing care. constantly coming to nurse station asking for help needy.augmentative when medication given. Patient is A/O X 2 to person, place. Requires minimal assistance with ADL, ambulates independently, continent. Reality orientation provided. Fall and safety precautions implemented.
[2023-01-12 20:00] VITALS: BP 160/99
[2023-01-12 20:05] VITALS: BP 160/99
[2023-01-12] MEDS: LORAZEPAM 1 MG TABLET PO PRN (20:22)
[2023-01-12] MEDS: ARIPIPRAZOLE 10 MG TABLET PO SCH (20:22)
[2023-01-12] MEDS: ATORVASTATIN 20 MG TABLET PO SCH (20:23)
[2023-01-12] MEDS: MELATONIN 3 MG TABLET PO SCH (20:23)
--- NOTE | 2023-01-13 01:45 | NUR ---
Pt still needs to be re-directed and reminded of not being intrusive, asking for irrelevant and unnecessary needs. Still suspicious of medications and needs reminders on what each medication is for, frequency, dosage, etc.
[2023-01-13] MEDS: HYDROXYZINE PAMOATE 25 MG CAPSULE PO PRN ×2 (03:46→17:02)
[2023-01-13] MEDS: PANTOPRAZOLE SODIUM 40 MG TABLET.DR PO SCH (06:04)
[2023-01-13 07:41] VITALS: BP 144/82
[2023-01-13] MEDS: ARIPIPRAZOLE 5 MG TABLET PO SCH ×2 (08:29→12:23)
[2023-01-13] MEDS: diphenhydrAMINE 25 MG CAP PO SCH ×2 (08:29→16:49)
[2023-01-13] MEDS: CHOLECALCIFEROL 1,000 UNIT TABLET PO SCH (08:29)
[2023-01-13] MEDS: MULTIVIT, IRON, MIN NO. 8, FA TABLET PO SCH (08:30)
[2023-01-13] MEDS: OXCARBAZEPINE 300 MG TABLET PO SCH ×2 (08:31→12:23)
[2023-01-13] MEDS: DOCUSATE SODIUM 250 MG CAPSULE PO SCH (08:31)
[2023-01-13] MEDS: AMLODIPINE 10 MG TABLET PO SCH (08:32)
[2023-01-13] MEDS: ASCORBIC ACID 500 MG TABLET PO SCH (08:33)
[2023-01-13] MEDS: GLUCERNA SHAKE 237 ML CAN PO SCH (08:33)
[2023-01-13] MEDS: HYDROCORTISONE 1% OINT 28.35 GM TUBE TOP SCH ×2 (08:34→16:51)
--- NOTE | 2023-01-13 13:42 | NUR ---
Patient isAAO x4 hyperverbal, manic, agitated, restless, intrusive . constantly coming to nurse station asking for help needy.augmentative when medication given. Requires minimal assistance with ADL, ambulates independently, continent. Reality orientation provided. Fall and safety precautions implemented.
--- NOTE | 2023-01-13 14:43 | NUR ---
PALOMO LPS Conservator Contact: PALOMO contacted pt's conservator, Yahaira ([phone]) and discussed pt's discharge clearance to return to [facility] on Friday via ambulance at 11am. Cayetano is aware and agreeable.
--- NOTE | 2023-01-13 14:52 | NUR ---
PALOMO LPS Conservator Contact Update: PALOMO contacted pt's conservator, Yahaira ([phone]) and left a voicemail correcting the discharge day which is to return to [facility] on via ambulance at 11am.
[2023-01-13] MEDS: ACETAMINOPHEN 325 MG TABLET PO PRN (20:06)
[2023-01-13] MEDS: ARIPIPRAZOLE 10 MG TABLET PO SCH (20:06)
[2023-01-13] MEDS: LORAZEPAM 1 MG TABLET PO PRN (20:06)
[2023-01-13] MEDS: MELATONIN 3 MG TABLET PO SCH (20:07)
[2023-01-13] MEDS: ATORVASTATIN 20 MG TABLET PO SCH (20:07)
[2023-01-13 20:13] VITALS: BP 149/74
[2023-01-13] MEDS ORDERED: OXCARBAZEPINE 300 MG TABLET PO SCH (21:00)
[2023-01-14] MEDS: HYDROXYZINE PAMOATE 25 MG CAPSULE PO PRN (04:14)
[2023-01-14] MEDS: PANTOPRAZOLE SODIUM 40 MG TABLET.DR PO SCH (06:44)
[2023-01-14 07:49] VITALS: BP_SYST 128; BP_SYST 143; BP_DIAS 86; BP_DIAS 94
[2023-01-14] MEDS: MULTIVIT, IRON, MIN NO. 8, FA TABLET PO SCH (08:53)
[2023-01-14] MEDS: ARIPIPRAZOLE 5 MG TABLET PO SCH ×2 (08:53→13:00)
[2023-01-14] MEDS: diphenhydrAMINE 25 MG CAP PO SCH ×2 (08:53→17:03)
[2023-01-14] MEDS: DOCUSATE SODIUM 250 MG CAPSULE PO SCH (08:53)
[2023-01-14] MEDS: OXCARBAZEPINE 300 MG TABLET PO SCH ×2 (08:53→13:00)
[2023-01-14] MEDS: CHOLECALCIFEROL 1,000 UNIT TABLET PO SCH (08:53)
[2023-01-14] MEDS: ASCORBIC ACID 500 MG TABLET PO SCH (08:54)
[2023-01-14] MEDS: GLUCERNA SHAKE 237 ML CAN PO SCH (08:54)
[2023-01-14] MEDS: AMLODIPINE 10 MG TABLET PO SCH (08:54)
[2023-01-14] MEDS: HYDROCORTISONE 1% OINT 28.35 GM TUBE TOP SCH ×2 (09:28→17:03)
--- NOTE | 2023-01-14 13:58 | NUR ---
Received patient pacing in the hallway. Patient is demanding, argumentative, needy, selective with medications, requires lots of prompts and redirection. Patient states "I'm not refusing medications, I just need to talk to the doctor first" "I need to finished what I'm doing and take medications when I'm available". Patient thinks everything should be done according to her availability. Patient is A/O X 3 to person, place. Requires minimal assistance with ADL. Reality orientation provided. Fall and safety precautions implemented.
[2023-01-14 15:18] VITALS: BP 135/70
[2023-01-14 20:00] VITALS: BP 133/84
[2023-01-14] MEDS: ARIPIPRAZOLE 10 MG TABLET PO SCH ×2 (20:44→22:12)
[2023-01-14] MEDS: ACETAMINOPHEN 325 MG TABLET PO PRN ×2 (20:45→22:13)
[2023-01-14] MEDS: LORAZEPAM 1 MG TABLET PO PRN ×2 (20:45→22:12)
[2023-01-14] MEDS: ATORVASTATIN 20 MG TABLET PO SCH ×2 (20:45→22:12)
[2023-01-14] MEDS: OXCARBAZEPINE 150 MG TABLET PO SCH ×2 (20:45→22:12)
[2023-01-14] MEDS: MELATONIN 3 MG TABLET PO SCH ×2 (20:45→22:12)
[2023-01-14 21:37] VITALS: BP 133/84
--- NOTE | 2023-01-14 22:13 | NUR ---
Patient is still confused, intrusive, non-compliant, suspicious, attention seeking and needy. Pt refused to take her 2100 hour medications even after numerous attempts within an hour and a half window/time frame. Deposed medications.
[2023-01-15] MEDS: LORAZEPAM 1 MG TABLET PO PRN (02:22)
[2023-01-15] MEDS: TEMAZEPAM 7.5 MG CAPSULE PO PRN (02:22)
[2023-01-15] MEDS: PANTOPRAZOLE SODIUM 40 MG TABLET.DR PO SCH ×2 (06:29→07:02)
--- NOTE | 2023-01-15 07:03 | NUR ---
Pt refused Protnix medication @ 0700 hours. Pt stated "it makes me have gas/fart more!" Even after education on its purpose which will actually help to prevent flatulence, she stated that it gives her the farts more.
[2023-01-15 07:45] LABS: HEMATOCRIT 39.5 % (31.2-41.9); MEAN CORPUSCULAR HEMOGLOBIN 29.6 uug (24.7-32.8); MEAN CORPUSCULAR VOLUME 89.1 fL (75.5-95.3); PLATELET COUNT (AUTO) 154 K/uL (179-408)
[2023-01-15 07:57] VITALS: BP 127/72
[2023-01-15] MEDS: OXCARBAZEPINE 300 MG TABLET PO SCH ×2 (08:00→13:20)
[2023-01-15] MEDS: ASCORBIC ACID 500 MG TABLET PO SCH (09:00)
[2023-01-15] MEDS: MULTIVIT, IRON, MIN NO. 8, FA TABLET PO SCH (09:00)
[2023-01-15] MEDS: CHOLECALCIFEROL 1,000 UNIT TABLET PO SCH (09:00)
[2023-01-15] MEDS: HYDROCORTISONE 1% OINT 28.35 GM TUBE TOP SCH ×2 (09:00→17:00)
[2023-01-15] MEDS: AMLODIPINE 10 MG TABLET PO SCH (09:00)
[2023-01-15] MEDS: GLUCERNA SHAKE 237 ML CAN PO SCH (09:00)
[2023-01-15] MEDS: DOCUSATE SODIUM 250 MG CAPSULE PO SCH (09:00)
[2023-01-15] MEDS: diphenhydrAMINE 25 MG CAP PO SCH ×2 (09:00→16:59)
--- NOTE | 2023-01-15 09:43 | NUR ---
PALOMO LPS Conservator Contact Contact: PALOMO contacted pt's conservator, Yahaira ([phone]) and left a voicemail for a call back to speak with this SW and the psychiatrist, Dr. Villatoro.
[2023-01-15] MEDS ORDERED: OLANZAPINE 10 MG VIAL IM PRN (11:00)
[2023-01-15 11:46] LABS: BILIRUBIN,TOTAL 0.5 mg/dL (0.2-1.0); CREATININE 1.3 mg/dL (0.6-1.3); POTASSIUM 3.8 mmol/L (3.5-5.1)
[2023-01-15 11:47] LABS: TOTAL PROTEIN, SERUM 7.5 g/dL (6.4-8.2)
[2023-01-15] MEDS ORDERED: ARIPIPRAZOLE 10 MG TABLET PO ONE (15:00)
--- NOTE | 2023-01-15 15:58 | NUR ---
Patient is demanding, manipulative, dramatic, needy, accusatory, intrusive, selective with medications. Patient is A/O X 3 to person, place. Patient needs frequent prompts and redirection. Active listening provided. Fall and safety precautions implemented.
[2023-01-15] MEDS: OXCARBAZEPINE 150 MG TABLET PO SCH (20:58)
[2023-01-15] MEDS: ATORVASTATIN 20 MG TABLET PO SCH (20:58)
[2023-01-15] MEDS: ARIPIPRAZOLE 10 MG TABLET PO SCH (20:58)
[2023-01-15] MEDS: MELATONIN 3 MG TABLET PO SCH (20:59)
--- NOTE | 2023-01-15 21:18 | NUR ---
GPS: Pt.is labile,irritable,intrusive,accusatory,argumentative and trying to refuse all PO meds.at bedtime but when reminded that she's going to get an injection she then took meds. PO. Pt.is also needy,demanding,manipulative and has disorganized thoughts. Needs frequent re-direction and limit setting from staff. Safe environment provided. Needs attended. Will continue to monitor behavior.
[2023-01-16] MEDS: ACETAMINOPHEN 325 MG TABLET PO PRN (05:32)
[2023-01-16 07:30] VITALS: BP 133/75
[2023-01-16] MEDS: ARIPIPRAZOLE 10 MG TABLET PO SCH ×2 (08:47→20:26)
[2023-01-16] MEDS: OXCARBAZEPINE 300 MG TABLET PO SCH ×3 (08:47→20:27)
[2023-01-16] MEDS: MULTIVIT, IRON, MIN NO. 8, FA TABLET PO SCH (08:50)
[2023-01-16] MEDS: CHOLECALCIFEROL 1,000 UNIT TABLET PO SCH (08:50)
[2023-01-16] MEDS: DOCUSATE SODIUM 250 MG CAPSULE PO SCH (08:50)
[2023-01-16] MEDS: AMLODIPINE 10 MG TABLET PO SCH (08:51)
[2023-01-16] MEDS: ASCORBIC ACID 500 MG TABLET PO SCH (08:52)
[2023-01-16] MEDS: HYDROCORTISONE 1% OINT 28.35 GM TUBE TOP SCH ×2 (08:52→17:25)
[2023-01-16] MEDS: GLUCERNA SHAKE 237 ML CAN PO SCH (08:53)
[2023-01-16] MEDS: diphenhydrAMINE 25 MG CAP PO SCH ×2 (09:00→17:26)
[2023-01-16] MEDS: PANTOPRAZOLE SODIUM 40 MG TABLET.DR PO SCH (09:28)
--- NOTE | 2023-01-16 11:57 | NUR ---
Nursing- Remains intrusive , needy , reviewed routine medications, hesitancy taking some of her meds., encouraged to take routine meds., reviewed rationale, , was able to take after . Patient constantly needing redirections
[2023-01-16] MEDS: HYDROXYZINE PAMOATE 25 MG CAPSULE PO PRN (14:50)
[2023-01-16 16:00] VITALS: BP 135/89
[2023-01-16] MEDS: MELATONIN 3 MG TABLET PO SCH (20:27)
[2023-01-16] MEDS: ATORVASTATIN 20 MG TABLET PO SCH (20:27)
[2023-01-16 20:47] VITALS: BP 128/74
--- NOTE | 2023-01-17 05:37 | NUR ---
GPS NOTES: Received in the hallway, ambulatory, A&0x2. Needy and intrusive, thoughts remains disorganized. Manic and hyperverbal. Delusional, resistive when taking medications, needs alot of prompting. Slept 3.15 intermittently.
[2023-01-17] MEDS: PANTOPRAZOLE SODIUM 40 MG TABLET.DR PO SCH (06:09)
[2023-01-17 07:30] VITALS: BP 127/69
[2023-01-17] MEDS: MULTIVIT, IRON, MIN NO. 8, FA TABLET PO SCH (08:45)
[2023-01-17] MEDS: CHOLECALCIFEROL 1,000 UNIT TABLET PO SCH (08:45)
[2023-01-17] MEDS: DOCUSATE SODIUM 250 MG CAPSULE PO SCH (08:46)
[2023-01-17] MEDS: ARIPIPRAZOLE 10 MG TABLET PO SCH ×2 (08:46→20:39)
[2023-01-17] MEDS: diphenhydrAMINE 25 MG CAP PO SCH ×2 (08:46→17:11)
[2023-01-17] MEDS: GLUCERNA SHAKE 237 ML CAN PO SCH (08:47)
[2023-01-17] MEDS: AMLODIPINE 10 MG TABLET PO SCH (08:47)
[2023-01-17] MEDS: ASCORBIC ACID 500 MG TABLET PO SCH (08:48)
[2023-01-17] MEDS: HYDROCORTISONE 1% OINT 28.35 GM TUBE TOP SCH ×2 (08:49→17:12)
[2023-01-17] MEDS: OXCARBAZEPINE 300 MG TABLET PO SCH ×3 (09:00→20:39)
[2023-01-17] MEDS ORDERED: OLANZAPINE 10 MG VIAL IM PRN (13:00)
[2023-01-17] MEDS: LORAZEPAM 1 MG TABLET PO PRN ×2 (15:18→22:37)
[2023-01-17 16:00] VITALS: BP 161/63
--- NOTE | 2023-01-17 17:37 | NUR ---
Received Patient is hyperverbal, manic, agitated, restless, incoherent, uncooperative with nursing care. constantly coming to nurse station asking for help very needy.augmentative when medication given. Patient is A/O X 2 to person, place. Requires minimal assistance with ADL, ambulates independently, calling fire department for no reason . Reality orientation provided. Fall and safety precautions implemented.
--- NOTE | 2023-01-17 17:52 | NUR ---
Received patient ambulates with FWW in the hallway. she is demanding, argumentative, needy, selective with medications, requires lots of prompts and redirection. Patient is A/O X 3 to person, place. Requires minimal assistance with ADL. Reality orientation provided. Fall and safety precautions implemented.
[2023-01-17] MEDS: ATORVASTATIN 20 MG TABLET PO SCH (20:39)
[2023-01-17] MEDS: MELATONIN 3 MG TABLET PO SCH (20:39)
--- NOTE | 2023-01-18 05:24 | NUR ---
GPS NOTES: Patients manic behavior is more noted this shift, pacing the hallway, in and out of her room, going to other patient's room. She needs constant reminding of the unit rules in w/c she has no regards. She is delusional and suspicious with the staff, accusatory of not giving her the attentions. She is easily to get hostile when her demands are not met. She refused her medications, saying she don't need it as she wants to sleep naturally. After educating patients she agreed to take her routine medications. Ativan given fro increasing anxiety. Effective. She slept 4.45H this shift. Frequent monitoring and safety precautions implemented at all times.
[2023-01-18] MEDS: PANTOPRAZOLE SODIUM 40 MG TABLET.DR PO SCH (06:13)
[2023-01-18 07:39] VITALS: BP 127/71
[2023-01-18] MEDS: MULTIVIT, IRON, MIN NO. 8, FA TABLET PO SCH (09:00)
[2023-01-18] MEDS: GLUCERNA SHAKE 237 ML CAN PO SCH (09:00)
[2023-01-18] MEDS: AMLODIPINE 10 MG TABLET PO SCH (09:00)
[2023-01-18] MEDS: ASCORBIC ACID 500 MG TABLET PO SCH (09:00)
[2023-01-18] MEDS: diphenhydrAMINE 25 MG CAP PO SCH ×2 (09:00→17:43)
[2023-01-18] MEDS: DOCUSATE SODIUM 250 MG CAPSULE PO SCH (09:00)
[2023-01-18] MEDS: OXCARBAZEPINE 300 MG TABLET PO SCH ×2 (09:00→20:20)
[2023-01-18] MEDS: HYDROCORTISONE 1% OINT 28.35 GM TUBE TOP SCH ×2 (09:00→17:43)
[2023-01-18] MEDS: CHOLECALCIFEROL 1,000 UNIT TABLET PO SCH (09:00)
[2023-01-18] MEDS: ARIPIPRAZOLE 10 MG TABLET PO SCH ×2 (09:58→20:20)
[2023-01-18] MEDS ORDERED: OLANZAPINE 10 MG VIAL IM PRN (10:00)
[2023-01-18] MEDS: HYDROXYZINE PAMOATE 25 MG CAPSULE PO PRN (15:33)
--- NOTE | 2023-01-18 16:20 | NUR ---
Received pt in [facility] Manic Hyperverbal, Intrusive behavior constantly needing to be redirected, Pt needs to be constantly reminded to stay away from the Nurses station,Pt is needy and constantly needs to be reminded of the unit rules.Refused all morning medications and received a Zyprexa IM 5mg back up. Pt asked for Vistaril prn Addendum: 01/18/23 at 1630 by JEREMY JOHNS LVN at 1533 , Pt stated she was feeling anxious. Continue to monitor for safety continue with treatment plan.
[2023-01-18 16:35] VITALS: BP 126/70
--- NOTE | 2023-01-18 20:00 | NUR ---
nsg: patient refused v/s. stated i am ok.
[2023-01-18] MEDS: MELATONIN 3 MG TABLET PO SCH (20:20)
[2023-01-18] MEDS: ATORVASTATIN 20 MG TABLET PO SCH (20:20)
[2023-01-18] MEDS: TEMAZEPAM 7.5 MG CAPSULE PO PRN (22:23)
--- NOTE | 2023-01-19 04:10 | NUR ---
GPS NOTES: Patient Remains needy keep asking multiple requests, setting limits in placed for the behavior, easily irate when re-directed. Denies SI, AH/VH. Hyperverbal, manic and attention seeker. patient has unsteady gait this morning. assisted to use bathroom. kept in julius chair near the nursing station for safety. Needs prompting to take her medications. Monitored closely for any behavioral escalation. Safety strategies in placed.
[2023-01-19] MEDS: PANTOPRAZOLE SODIUM 40 MG TABLET.DR PO SCH (06:03)
--- NOTE | 2023-01-19 06:26 | NUR ---
nsg: patient slept 4.30 hrs through the night.
[2023-01-19 07:55] VITALS: BP 138/55
[2023-01-19] MEDS: ARIPIPRAZOLE 10 MG TABLET PO SCH ×2 (08:22→20:41)
[2023-01-19] MEDS: ASCORBIC ACID 500 MG TABLET PO SCH (08:23)
[2023-01-19] MEDS: ACETAMINOPHEN 325 MG TABLET PO PRN (08:23)
[2023-01-19] MEDS: MULTIVIT, IRON, MIN NO. 8, FA TABLET PO SCH (08:23)
[2023-01-19] MEDS: DOCUSATE SODIUM 250 MG CAPSULE PO SCH (08:23)
[2023-01-19] MEDS: AMLODIPINE 10 MG TABLET PO SCH (08:23)
[2023-01-19] MEDS: OXCARBAZEPINE 300 MG TABLET PO SCH ×2 (08:24→20:41)
[2023-01-19] MEDS: GLUCERNA SHAKE 237 ML CAN PO SCH (08:24)
[2023-01-19] MEDS: HYDROCORTISONE 1% OINT 28.35 GM TUBE TOP SCH ×2 (08:24→17:17)
[2023-01-19] MEDS: CHOLECALCIFEROL 1,000 UNIT TABLET PO SCH (09:00)
[2023-01-19] MEDS: diphenhydrAMINE 25 MG CAP PO SCH ×2 (09:00→17:00)
[2023-01-19 16:36] VITALS: BP 150/88
[2023-01-19] MEDS: HYDROXYZINE PAMOATE 25 MG CAPSULE PO PRN ×2 (17:17→23:50)
[2023-01-19 19:59] VITALS: BP 116/56
[2023-01-19] MEDS: LORAZEPAM 1 MG TABLET PO PRN (20:40)
[2023-01-19] MEDS: MELATONIN 3 MG TABLET PO SCH (20:41)
[2023-01-19] MEDS: ATORVASTATIN 20 MG TABLET PO SCH (21:09)
[2023-01-19] MEDS: TEMAZEPAM 7.5 MG CAPSULE PO PRN (23:50)
--- NOTE | 2023-01-20 01:30 | NUR ---
Still intrusive and has poor judgement and insight regarding decision making. Pt still requests for unnecessary needs at inconvenient times. Pt responds well to PRN meds. Has difficulty responding to direction and needs constant reminding and assurance with meds/POC. Although pt is AOx3, pt has moments of making circumstantial or tangential statements when trying to respond to questions being asked. Was somewhat anxious and easily irritable this shift. Gave meds as needed. Responded well to them.
[2023-01-20] MEDS: PANTOPRAZOLE SODIUM 40 MG TABLET.DR PO SCH (06:15)
[2023-01-20 07:46] VITALS: BP 138/70
--- NOTE | 2023-01-20 08:15 | NUR ---
PALOMO Discharge Screener: PALOMO completed a discharge screener with the pt.
[2023-01-20 08:43] VITALS: BP 138/70
[2023-01-20] MEDS: CHOLECALCIFEROL 1,000 UNIT TABLET PO SCH (08:43)
[2023-01-20] MEDS: AMLODIPINE 10 MG TABLET PO SCH (08:43)
[2023-01-20] MEDS: DOCUSATE SODIUM 250 MG CAPSULE PO SCH (08:43)
[2023-01-20] MEDS: MULTIVIT, IRON, MIN NO. 8, FA TABLET PO SCH (08:43)
[2023-01-20] MEDS: diphenhydrAMINE 25 MG CAP PO SCH (08:43)
[2023-01-20] MEDS: OXCARBAZEPINE 300 MG TABLET PO SCH (08:43)
[2023-01-20] MEDS: ASCORBIC ACID 500 MG TABLET PO SCH (08:44)
[2023-01-20] MEDS: GLUCERNA SHAKE 237 ML CAN PO SCH (08:45)
[2023-01-20] MEDS: HYDROCORTISONE 1% OINT 28.35 GM TUBE TOP SCH (08:49)
[2023-01-20] MEDS ORDERED: NEOMY/BACITRAC/POLYMI OINT 28.35 GM TUBE TOP SCH (09:00)
[2023-01-20] MEDS: ARIPIPRAZOLE 10 MG TABLET PO SCH (09:13)
--- NOTE | 2023-01-20 10:01 | NUR ---
PALOMO LPS Conservator Contact Update: PALOMO contacted pt's conservator, Yahaira ([phone]) and left a voicemail informing aamir of pt's discharge order to return to [facility] ([phone]) [address] [place] [address] via Ambulance transportation at 1PM. Aamir is aware and agreeable from previous conversations of pt's return to [place].
--- NOTE | 2023-01-20 10:18 | NUR ---
PALOMO Discharge Note: Pt will be discharged to return [facility] ([phone]) located at [address] [place] [address] via Ambulance transportation at 1PM. PALOMO spoke with admin coordinator Renetta at the facility who states they are ready to accept the patient today. Pts LPS Conservator, Cayetano ([phone]) is aware and agreeable with the discharge plan. Pt is alert and oriented x4, is unable to plan for self-care at this time. However, pt is willing to accept care at SNF. Pt denies any suicidal or homicidal ideation. Pt will follow-up at the facility with Psychiatrist, Dr. Villatoro and Seed Cutter, Dr. Webber. Pt presents with calm mood and congruent affect. PHARMACY: [facility] ([phone]) [address] [id number].
--- NOTE | 2023-01-20 11:13 | NUR ---
PALOMO Discharge Note Update: Pt will be discharged to return [facility] ([phone]) located at [address] [place] [address] via Ambulance transportation at 1PM. PALOMO spoke with admin coordinator Renetta at the facility who states they are ready to accept the patient today. Pts LPS Conservator, Cayetano ([phone]) is aware and agreeable with the discharge plan. Pt is alert and oriented x4, is unable to plan for self-care at this time. However, pt is willing to accept care at SNF. Pt denies any suicidal or homicidal ideation. Pt will follow-up at the facility with Psychiatrist, Dr. Alarcon and Mint Wafer Depositor, Dr. Webber. Pt presents with calm mood and congruent affect. PHARMACY: [facility] ([phone]) [address] [address].
--- NOTE | 2023-01-20 14:01 | NUR ---
Discharged patient returned to [facility] via Ambulance transportation at 1PM. Pts LPS Conservator, Cayetano ([phone]) is aware and agreeable with the discharge plan. Pt is alert and oriented x4, is unable to plan for self-care at this time. However, pt is willing to accept care at SNF. Pt denies any suicidal or homicidal ideation. Pt will follow-up at the facility with Psychiatrist, Dr. Alarcon and Java Web Architect, Dr. Webber. all personal belonging returned to patient ,report given to Christina COULTER at facility.
== END 2023-01-20 13:30 | DRG 885 ==
LOC: ER 23:50 → GPS 01-02 03:31
PROVIDERS: ADMIT Psychiatry & Neurology Psychosomatic Medicine; ATTEND Nurse Practitioner Family
DX: F25.0 Schizoaffective disorder, bipolar type (principal); N18.9 Chronic kidney disease, unspecified; N17.9 Acute kidney failure, unspecified; G93.40 Encephalopathy, unspecified; J44.9 Chronic obstructive pulmonary disease, unspecified; E11.42 Type 2 diabetes mellitus with diabetic polyneuropathy; E78.5 Hyperlipidemia, unspecified; F60.3 Borderline personality disorder; K21.9 Gastro-esophageal reflux disease without esophagitis; Z86.73 Personal history of transient ischemic attack (TIA), and cerebral infarction without residual deficits; Z91.199 Patient's noncompliance with other medical treatment and regimen due to unspecified reason; Z79.4 Long term (current) use of insulin; F29 Unspecified psychosis not due to a substance or known physiological condition; I12.9 Hypertensive chronic kidney disease with stage 1 through stage 4 chronic kidney disease, or unspecified chronic kidney disease; E87.6 Hypokalemia; E11.22 Type 2 diabetes mellitus with diabetic chronic kidney disease; M19.90 Unspecified osteoarthritis, unspecified site; F41.9 Anxiety disorder, unspecified; M89.8X9 Other specified disorders of bone, unspecified site; B86 Scabies; Z20.822 Contact with and (suspected) exposure to COVID-19
CPT/HCPCS: 36415; 80164; 83735; 83970; 84100; 84155; 84165; 85025; J1200; J2060; J2358; J3490; Q0163